=== PATIENT | female | born 1970 | race Caucasian/White ===

== ENCOUNTER → 2021-01-21 07:15 | Outpatient (CLI) | payer BC | END | disposition home or self-care (01) | LOC: D.LAB 01-19 15:07 | PROVIDERS: ATTEND Family Medicine | DX: Z20.822 Contact with and (suspected) exposure to COVID-19 (principal) ==

== ENCOUNTER → 2021-01-26 09:27 | Outpatient (CLI) | payer BC | END | disposition home or self-care (01) | LOC: D.RT 09:27 | PROVIDERS: ATTEND Family Medicine | DX: R06.00 Dyspnea, unspecified (principal) ==